=== PATIENT | female | born 2000 | race American Indian/Alaskan Native ===

== ENCOUNTER 2019-08-25 06:39 | Inpatient (IN) | payer MEDICAID ==
[2019-08-25] MEDS ORDERED: TERBUTALINE 1 MG/1 ML INJ IVP PRN (08:10)
[2019-08-25] MEDS ORDERED: LIDOCAINE (2%) 20 MG/1 ML VIAL 20 ML MDV INFILTRATI ONE ×2 (08:10→10:52)
[2019-08-25] MEDS ORDERED: MINERAL OIL 30 ML ORAL LIQD PO PRN (08:10)
[2019-08-25] MEDS ORDERED: ONDANSETRON 4 MG/2 ML INJ IV PRN (08:10)
[2019-08-25] MEDS ORDERED: fentaNYL 100 MCG/2 ML INJ IV PRN (08:10)
[2019-08-25] MEDS ORDERED: TERBUTALINE 1 MG/1 ML INJ SUB-Q PRN (08:10)
[2019-08-25] MEDS ORDERED: BUTORPHANOL 2 MG/1 ML INJ IV PRN ×2 (08:10)
[2019-08-25] MEDS ORDERED: ePHEDrine SULFATE 50 MG/1 ML INJ IV PRN (08:10)
[2019-08-25] MEDS ORDERED: OXYTOCIN 20 UNIT/1000ML DRIP 20 UNITS/1,000 ML BAG IV SCH (09:00)
[2019-08-25] MEDS ORDERED: LACTATED RINGERS 1,000 ML IV SCH (09:00)
[2019-08-25 09:18] LABS: Hematocrit 39.2 % (30.3-42.9); Hemoglobin 13.1 gm/dl (10.1-14.3); Mean Corpuscular HGB Conc 33 % (30-34); Mean Corpuscular Volume 86 fl (79-97); Platelet Count 198 K/mm3 (140-440); Red Blood Count 4.58 M/mm3 (3.65-5.03); Red Cell Distribution Width 13.3 % (13.2-15.2)
--- NOTE | 2019-08-25 11:00 | History and Physical Report ---
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 Also complicated by Vitamin D Insufficiency, Excessive Maternal Weight Gain, and a UTI. 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 Family/Genetic History: diabetes, cancer Social history: no significant social history, single - Obstetrical History Expected Date of Delivery: 08/31/19 Actual Gestation: 39 Week(s) 1 Day(s) : 1 Medications and Allergies Allergies Allergy/AdvReac Type Severity Reaction Status Date / Time peanut Allergy Itching Verified 08/25/19 09:16 Active Meds: Active Medications Butorphanol Tartrate (Stadol) 1 mg IV Q2H PRN PRN Reason: Pain, Moderate(4-6) LABOR PAIN Butorphanol Tartrate (Stadol) 2 mg IV Q2H PRN PRN Reason: Pain , Severe (7-10) Ephedrine Sulfate (Ephedrine Sulfate) 10 mg IV Q2M PRN PRN Reason: Hypotension Fentanyl (Sublimaze) 100 mcg IV Q2H PRN PRN Reason: Pain,Severe (7-10) LABOR PAIN Oxytocin/Sodium Chloride (Pitocin/Ns 20 Unit/1000ml Drip) 20 units in 1,000 mls @ 125 mls/hr IV DIRECT NIKI Lactated Ringer's (Lactated Ringers) 1,000 mls @ 125 mls/hr IV DIRECT NIKI Last Admin: 08/25/19 09:35 Dose: 125 mls/hr Documented by: Lidocaine (Xylocaine 2%) 20 ml INFILTRATI ONCE ONE Stop: 08/25/19 10:53 Mineral Oil (Mineral Oil) 30 ml PO QHS PRN PRN Reason: Constipation Ondansetron HCl (Zofran) 4 mg IV Q8H PRN PRN Reason: Nausea And Vomiting Terbutaline Sulfate (Brethine) 0.25 mg SUB-Q ONCE PRN PRN Reason: Hyperstimulation/Hypertonicity Terbutaline Sulfate (Brethine) 0.25 mg IVP ONCE PRN PRN Reason: Hyperstimulation/Hypertonicity Review of Systems All systems: negative - Vital Signs Vital signs: Vital Signs Pulse BP 96 H 155/88 08/25/19 07:03 08/25/19 07:03 Temp Pulse Resp BP Pulse Ox 98.8 F 98 H 132/71 100 08/25/19 09:35 08/25/19 10:35 08/25/19 10:08 08/25/19 10:35 - Physical Exam Breasts: Positive: normal Cardiovascular: Regular rate Lungs: Positive: Clear to auscultation, Normal air movement Abdomen: Positive: normal appearance, soft, normal bowel sounds Genitourinary (Female): Positive: normal external genitalia, normal perenium Vagina: Positive: normal moisture Uterus: Positive: enlarged Anus/Rectum: Positive: normal perianal skin Extremities: Positive: normal - Obstetrical FHR: category 1 Uterine Contraction Monitor Mode: External Cervical Dilatation: 8 (AROM of hindbag (moderte amount of clear fluid @ 1044) Cervical Effacement Percentage: 90 station: 0 Uterine Contraction Pattern: Regular Uterine Tone Measurement Phase: Resting Uterine Contraction Intensity: Moderate Results Result Diagrams: 08/25/19 08:55 All other labs normal. Assessment and Plan A: IUP @ 39 1/7 Weeks Category I Tracing Active Labor GBS Negative P: Admit to L&D per Routine Orders AROM IV Pain Control
[2019-08-25] MEDS ORDERED: diphenhydrAMINE 25 MG CAP PO PRN (12:29)
[2019-08-25] MEDS ORDERED: LANOLIN/ZINC/DIMETHICONE (LANSINOH) 7 GM TP PRN (12:29)
[2019-08-25] MEDS ORDERED: WITCH HAZEL/ GLYCERIN PAD TP PRN (12:29)
[2019-08-25] MEDS ORDERED: PROMETHAZINE 25 MG TAB PO PRN (12:29)
[2019-08-25] MEDS ORDERED: HYDROcodone/ACETAMINOPHEN 5-325 MG TAB PO PRN (12:29)
--- NOTE | 2019-08-25 12:37 | Procedure Note ---
OB Delivery Note - Delivery Date of Delivery: 08/25/19 (1151) Surgeon: BENJAMIN LLOYD Estimated blood loss: 300cc - Vaginal Delivery presentation: vertex Delivery position: OA Intrapartum events: none Delivery induction: none Delivery augmentation: rupture of membranes Delivery monitor: external FHT, external uterine Route of delivery: Delivery placenta: spontaneous Delivery cord: 3 umbilical vessels Episiotomy: none Delivery laceration: 1st degree Delivery repair: vicryl Anesthesia: local Delivery comments: of a live 6'14 female infant under 1st degree bilateral labial lacerations under IV pain control with Apgars of 8 and 9 at 1151 on 08/25/2019. Infant directly to maternal abd/chest, skin to skin contact. Spontaneous delivery of placenta complete and intact with Blevins side presenting at 1156. Fundus is firm and midline located 4 below the U. Lochia is scant. Delayed cord clamping and cutting; Cord cut by the Father of the Baby. Bilateral labial lacerations repaired with 2-[address]-1 under local 2% Lidocaine. Placenta discarded. - A at 1 minute: 8 at 5 minutes: 9 Infant Gender: Female (6'14)
[2019-08-25] MEDS: IBUPROFEN 600 MG TAB PO SCH (13:36)
[2019-08-25] MEDS ORDERED: BENZOCAINE/MENTHOL 20/0.5% TOP SPRAY 56 GM TP PRN (15:27)
[2019-08-26] MEDS: IBUPROFEN 600 MG TAB PO SCH ×4 (00:28→17:48)
[2019-08-26 05:53] LABS: Hematocrit 32.7 % (30.3-42.9); Hemoglobin 10.9 gm/dl (10.1-14.3)
--- NOTE | 2019-08-26 11:19 | Progress Note ---
Assessment and Plan - Patient Problems (1) Status post normal vaginal delivery Current Visit: Yes Status: Acute Plan to address problem: PPD 1 - stable Continue routine orders Discharge to home 08/27/19 Follow-up at [facility] as needed or in 6 weeks for exam (2) Single live Current Visit: Yes Status: Acute Subjective - Subjective Date of service: 08/26/19 Principal diagnosis: PPD #1; s/p Interval history: see [facility] - H&P and OB Delivery Procedure Note Patient reports: appetite normal, voiding normally, pain well controlled, ambulating normally, no dizzy ambulation : doing well Objective - Vital Signs Latest vital signs: Vital Signs Temp Pulse Resp BP BP Pulse Ox 08/26/19 09:06 98.0 F 86 18 100/52 97 08/26/19 02:30 98.7 F 87 18 132/52 99 08/25/19 21:02 99.8 F H 08/25/19 20:24 117 H 18 104/44 96 08/25/19 16:38 98.1 F 95 H 18 136/69 100 08/25/19 14:15 98.4 F 102 H 20 141/73 96 08/25/19 13:25 98.8 F 105 H 18 135/74 99 08/25/19 12:48 109 H 94 08/25/19 12:46 111 H 98 08/25/19 12:41 108 H 98 08/25/19 12:36 104 H 98 08/25/19 12:31 104 H 98 08/25/19 12:27 107 H 147/84 08/25/19 12:26 107 H 100 08/25/19 12:25 109 H 139/71 08/25/19 11:58 118 H 135/89 08/25/19 11:46 111 H 99 08/25/19 11:42 117 H 91 08/25/19 11:41 79 L 08/25/19 11:32 98 H 99 08/25/19 11:27 103 H 98 Intake and Output 08/25/19 08/26/19 08/26/19 23:59 07:59 15:59 Intake Total 300 Output Total 1150 Balance -850 Intake: Intake, Free Water 300 Output: Urine 1150 Void 1150 Other: Total, Output Amount 450 # Voids Void 1 - Exam Cardiovascular: Present: Regular rate Lungs: Present: Clear to auscultation, Normal air movement Abdomen: Present: normal appearance, soft Vulva: both: laceration/episiotomy (well approximated) Uterus: Present: normal, firm, fundal height at umbilicus Extremities: Present: normal Comments: scant lochia
--- NOTE | 2019-08-26 11:21 | Discharge Summary ---
Providers - Providers Date of Admission: 08/25/19 06:40 Date of discharge: 08/27/19 Attending physician: JOHANA BROOKS MD Primary care physician: JOHANA BROOKS MD Hospitalization Reason for admission: active labor, IUP at term Delivery: Episiotomy: none Laceration: 1st degree Other procedures: none complications: none Discharge diagnosis: IUP at term delivered baby: female Hospital course: Uncomplicated Condition at discharge: Stable Disposition: DC-01 TO HOME OR SELFCARE - Discharge Diagnoses (1) Status post normal vaginal delivery Status: Acute (2) Single live Status: Acute Plan - Provider Discharge Summary Activity: routine, no sex for 6 weeks, no heavy lifting 4 weeks, no strenuous exercise Diet: routine Instructions: routine Additional instructions: [] Smoking cessation referral if applicable(refer to patient education folder for contact #) [] Refer to [facility] Book[facility] Call your doctor immediately for: * Fever > 100.5 * Heavy vaginal bleeding ( >1 pad per hour) * Severe persistent headache * Shortness of breath * Reddened, hot, painful area to leg or breast * Drainage or odor from incision. * Keep incision clean and dry at all times and follow doctor's instructions regarding bathing/showering - Follow up plan Follow up: JOHANA BROOKS MD [Primary Care Provider] - 6 Weeks (Follow-up at [facility] as needed or in 6 weeks for exam)
[2019-08-26] MEDS: PRENATAL VIT27-FE FUMARATE-FOLIC ACID VIT TAB PO SCH (17:49)
[2019-08-27] MEDS: IBUPROFEN 600 MG TAB PO SCH (08:00)
[2019-08-27] MEDS: PRENATAL VIT27-FE FUMARATE-FOLIC ACID VIT TAB PO SCH (09:19)
[2019-08-27 13:38] VITALS: BP 131/77
== END 2019-08-27 13:30 | disposition home or self-care (01) | DRG 775 ==
LOC: TRG 06:39 → LD 06:40 → APU 06:46 → LD 08:14 → TRG 11:00 → OB 14:43
PROVIDERS: ADMIT Obstetrics & Gynecology; ATTEND Obstetrics & Gynecology
PROC: 10E0XZZ Delivery of Products of Conception, External Approach (ICD-10-PCS; principal; 2019-08-25)
DX: O99.52 Diseases of the respiratory system complicating childbirth (principal); Z3A.39 39 weeks gestation of pregnancy; Z37.0 Single live birth; O70.0 First degree perineal laceration during delivery; J45.909 Unspecified asthma, uncomplicated
CPT/HCPCS: 36415; 59025; 85014; 85018; 85027; 86850; 86900; 86901; 96360; 96365; 96366; 96374; G0378; J0595; J2405; J2590; J7120